=== PATIENT | female | born 1955 | race Caucasian/White ===

== ENCOUNTER 2020-03-05 14:41 | Emergency (ER) | payer OTHER ==
--- OUTSIDE RECORDS SUMMARY | 2020-03-05 14:54 | XMS ---
:1955 Author Organization [facility] Care Team Providers Name Role Phone You Atkinson Unavailable Fader, M Unavailable Fader, M Unavailable Fader, M Unavailable Fader, M Unavailable Fader, M Unavailable Fader, M Unavailable Fader, M Unavailable Fader, M Unavailable Fader, M Unavailable Fader, M Unavailable Fader, M Unavailable Fader, M Unavailable Fader, M Unavailable Re-disclosure Warning The records that you are about to access may contain information from federally- assisted alcohol or drug abuse programs. If such information is present, then the following federally mandated warning applies: This information has been disclosed to you from records protected by federal confidentiality rules (42 CFR part 2). The federal rules prohibit you from making any further disclosure of this information unless further disclosure is expressly permitted by the written consent of the person to whom it pertains or as otherwise permitted by 42 CFR part 2. A general authorization for the release of medical or other information is NOT sufficient for this purpose. The Federal rules restrict any use of the information to criminally investigate or prosecute any alcohol or drug abuse patient.The records that you are about to access may contain highly sensitive health information, the redisclosure of which is protected by Article 27-F of the [facility] Public Health law. If you continue you may haveaccess to information: Regarding HIV / AIDS; Provided by facilities licensed or operated by the [facility] Office of Mental Health; or Provided by the [facility] Office for People With Developmental Disabilities. If such information is present, then the following [facility] mandated warning applies: This information has been disclosed to you from confidential records which are protected by state law. State law prohibits you from making any further disclosure of this information without the specific written consent of the person to whom it pertains, or as otherwise permitted by law. Any unauthorized further disclosure in violation of state law may result in a fine or mcfp sentence or both. A general authorization for the release of medical or other information is NOT sufficient authorization for further disclosure. Encounters Encounter Providers Location Date Indications Data Source(s ) Attender: You 01/18/2020 [facility] ( [facility] 12:00:00 AM ED Medical, ) Telehealth Attender: You Atkinson 01/18/2020 12:00:00 AM E DT [facility] ([facility]) Telehealth Attender: You Atkinson 01/18/2020 12:00:00 AM E DT [facility] ([facility]) Telehealth Medications Medication Brand Start Product Dose Route Administrative Pharmacy [facility] Indications Reaction Description Data Name Date Form Instructions Instructions Source(s) Alprazolam ALPRAZ 01/17/ TABLET 60 complet ALPRA ZOLAM MED[facility] (St 2 MG Oral OLAM:1 2019 ed [facility] Tablet 51721 12:00: Medical, ALPRAZOLAM: 00 AM PC) [id number] EDT Trazodone TRAZOD 01/09/ TABLET 90 complet TRAZOD ONE [facility] (St [facility]chlori [facility]:85 [facility] 6364 12:00: Medical, Oral Tablet 00 AM PC) TRAZODONE:8 EDT 68155 Simvastatin SIMVAS 01/09/ TABLET 90 complet SIMV ASTATIN [facility] (St 20 MG Oral TATIN: 2019 [facility] Tablet [id number] 12:00: Medical, SIMVASTATIN 00 AM PC) :[id number] EDT Insurance Providers Payer name Policy type Policy ID Covered Covered libertarian's Policy P kyra / Coverage libertarian ID relationship to [employer] ormation type [employer] BRADEN [id number] MEDICARE [place] [id number] INSURANCE COMPANY ([employer] [place] MEDICARE [id number] 1 [id number] PART B DOWNSTATE AARP MEDICARE [id number] 1 [id number] COMPLETE STATE [id number] INSURANCE FUND [place] [id number] HEALTHCARE (MEDICARE) [place] [id number] HEALTHCARE (MEDICARE) AARP MEDICARE [id number] 1 [id number] SUPPLEMENT [facility] [id number] 1 [id number] CARE MEDICARE COMPLETE Problems, Conditions, and Diagnoses Code Display Name Description Problem Type Effective Dates Data Source(s) J01.90 Acute sinusitis, ACUTE SINUSITIS, Problem 04/06/2019 [place] DGEN (St unspecified UNSPECIFIED 12:00:00 AM [facility]'s [facility], ) Surgeries/Procedures Procedure Description Date Indications Data Source(s) Documentation of current 01/18/2020 MED [facility] ([facility] medications (procedure) 12:00:00 AM EDT FARNAZ Soria) Documentation of current 01/18/2020 [facility] ([facility] medications (procedure) 12:00:00 AM EDT FARNAZ Soria) Documentation of current 01/18/2020 [facility] ([facility] medications (procedure) 12:00:00 AM EDT FARNAZ Soria) PHYSICIAN TELEPHONE 01/18/2020 [facility] ( [facility] EVALUATION 11-20 MIN 12:00:00 AM EDFARNAZ Stephen) Documentation of current 09/06/2019 [facility] ([facility] medications (procedure) 12:00:00 AM EDT FARNAZ Soria) Documentation of current 09/06/2019 [facility] ([facility] medications (procedure) 12:00:00 AM EDT FARNAZ Soria) PHYSICIAN TELEPHONE 09/06/2019 [facility] ( [facility] EVALUATION 11-20 MIN 12:00:00 AM EDT Lilian middleton PC) Documentation of current 05/31/2019 MED [facility] ([facility] medications (procedure) 12:00:00 AM EST FARNAZ Soria) Documentation of current 05/31/2019 [facility] ([facility] medications (procedure) 12:00:00 AM EST FARNAZ Soria) Documentation of current 05/31/2019 MED [facility] ([facility] medications (procedure) 12:00:00 AM MARNI bell PC) OFFICE OUTPATIENT VISIT 05/31/2019 MEDG EN ([facility] 15 MINUTES 12:00:00 AM RUST Marco PC) Documentation of current 04/06/2019 MED [facility] (Cathi's medications (procedure) 12:00:00 AM MARNI bell PC) Documentation of current 04/06/2019 MED [facility] ([facility]i's medications (procedure) 12:00:00 AM FARNAZ Solorzano) OFFICE OUTPATIENT VISIT 04/06/2019 MED[facility] EN ([facility] 15 MINUTES 12:00:00 AM MARNI Lara PC) Documentation of current 01/26/2019 MED GEN (Cathi's medications (procedure) 12:00:00 AM EDFARNAZ Rosales) Documentation of current 01/26/2019 MED [facility] (Cathi's medications (procedure) 12:00:00 AM LANA bell PC) Documentation of current 01/26/2019 MED [facility] (Cathi's medications (procedure) 12:00:00 AM LANA bell PC) Documentation of current 01/26/2019 MED [facility] (Cathi's medications (procedure) 12:00:00 AM FARNAZ Gottlieb) Documentation of current 01/26/2019 MED GEN (Cathi's medications (procedure) 12:00:00 AM LANA bell PC) Documentation of current 01/26/2019 MED [facility] (Cathi's medications (procedure) 12:00:00 AM EDAlfonso bell PC) Documentation of current 01/26/2019 MED [facility] ([facility]i's medications (procedure) 12:00:00 AM LANA bell PC) OFFICE OUTPATIENT VISIT 01/26/2019 MED[facility] EN ([facility] 15 MINUTES 12:00:00 AM LANA Lara PC) Results ID Date Data Source [id number] 01/15/2020 10:31:00 AM [facility] Name Value Range Interpretation Description Data Sup porting Code Source(s) Document(s ) 2019 Novel [facility] Coronavirus RNA Interpretation Unspecified Specimen Qualitative HANNY Probe Detection This lab was ordered by [facility]-[id number] and reported by [facility]. Procedure Social History Code Duration Value Status Description Data Source(s ) Smoking 01/18/2020 Marital Status completed Marital Status MEDGEN (St 12:00:00 AM EDT Number of [facility] 3 Children 3 PC) Alcohol Use Alcohol Use Rarely Rarely Tobacco Tobacco Status: Status: Former Former smoker smoker (quit jun (quit jun 2016) 2016) Tobacco Tobacco details: details: Cigarettes Daily Cigarettes Daily Smoking: < Smoking: < 1 Pack 1 Pack Smoking 01/18/2020 Former smoker completed Former smoker MED[facility] ( St 12:00:00 AM EDT [facility], ) Vital Signs ID Date Data Source UNK Name Value Range Interpretation Code Description Data Source(s) Body weight 182 lb 182 lb MED[facility] ([facility]) Heart rate 59 /min 59 /min [facility] ([facility]) Respiratory rate 16 /min 16 /min [facility] ( [facility]) Body temperature 98 F 98 F [facility] ( [facility]) Inhaled oxygen 97 % 97 % [facility] ([facility], ) Body mass index 28.7 kg/m2 28.7 kg/m2 MEDGEN (S t (BMI) [Ratio] [facility], ) Diastolic blood 79 mm[Hg] 79 mm[Hg] MED[facility] (S t pressure [facility]) Systolic blood 119 mm[Hg] 119 mm[Hg] MED[facility] ([facility]) Body weight 178 lb 178 lb MED[facility] ([facility]) Body height 66 in 66 in [facility] ([facility]) Heart rate 80 /min 80 /min [facility] ([facility]) Respiratory rate 16 /min 16 /min MED[facility] ( [facility]) Body mass index -1 kg/m2 -1 kg/m2 MEDGEN (S t (BMI) [Ratio] [facility], ) Diastolic blood 78 mm[Hg] 78 mm[Hg] MED[facility] (S t pressure [facility]) Systolic blood 110 mm[Hg] 110 mm[Hg] MED[facility] ([facility]) Heart rate 69 /min 69 /min [facility] ([facility]) Respiratory rate 17 /min 17 /min MED[facility] ( [facility]) Body temperature 98.1 F 98.1 F MED[facility] ( [facility]) Inhaled oxygen 98 % 98 % MED[facility] ([facility], ) Body mass index 29 kg/m2 29 kg/m2 [facility] ([facility] Diastolic blood 65 mm[Hg] 65 mm[Hg] MED[facility] (S t pressure [facility]) Systolic blood 122 mm[Hg] 122 mm[Hg] [facility] ([facility]) Body weight 180 lb 180 lb [facility] ([facility]) [facility] height 66 [facility]
--- NOTE | 2020-03-05 14:57 | TELE ---
HPI Do you have fever,cough or shortness of breath?: No - General Reason For Visit: COVID History Source: Patient Past History - Medical History Allergies/Adverse Reactions: Allergies Allergy/AdvReac Type Severity Reaction Status Date / Time aspirin Allergy Mild Rash Verified 12/16/12 13:49 clarithromycin [From Biaxin] AdvReac Mild thrush, Unverified 06/12/14 10:54 stomach pain Home Medications: Ambulatory Orders Ascorbic Acid [Vitamin C] 1,000 mg PO TID 11/27/12 Lysine 1,000 mg PO DAILY tablet 11/27/12 Ubidecarenone [Coenzyme Q10] 400 mg PO DAILY capsule 11/27/12 Magnesium DAILY 10/22/14 Multivitamin with Minerals [Hair, Skin & Nails] 3 each PO tablet 10/22/14 Aspirin 81 mg PO MWF 10/07/15 Vitamin D3 5,000 unit DAILY 01/06/16 Zinc Gluconate-Zinc Picolinate [Zinc] 30 mg PO DAILY capsule 01/06/16 Ascorbic Acid/Collagen Hydr [Collagen Plus Vit C Capsule] 1,000 mg PO 3 CAPS DAILY capsule 08/19/16 Chlorzoxazone [Lorzone] 750 mg PO Q8H PRN tablet 08/19/16 Gabapentin [Neurontin] 300 mg PO BID #180 capsule 08/19/16 Lactobacillus Acidophilus [Acidophilus] 1 each PO DAILY capsule 08/19/16 Anemia: No Asthma: No Cancer: No Cardiac Disorders: No CVA: No COPD: No CHF: No Dementia: No Diabetes: No GI Disorders: Yes (GERD) Disorders: No HTN: No Hypercholesterolemia: Yes Liver Disease: No Seizures: No Thyroid Disease: No - Surgical History Abdominal Surgery: No Appendectomy: Yes Cardiac Surgery: No Cholecystectomy: Yes Lung Surgery: No Neurologic Surgery: No Orthopedic Surgery: Yes (spinal surgery secondary to trauma) - Psycho-Social/Smoking History Smoking Status: No Smoking History: Current some day smoker Have you smoked in the past 12 months: Yes Number of Cigarettes Smoked Daily: 5 'Breaking Loose' booklet given: 12/12/12 Review of Systems - Review of Systems Constitutional: No: Fever HEENTM: Yes: Throat Pain Respiratory: No: Cough Cardiac (ROS): No: Chest Pain Musculoskeletal: Yes: Muscle Pain - Medical Decision Making 03/05/20 14:55 Patient requesting Covid test with mild flulike symptoms of muscle soreness and sore throat no fever. Positive Covid with close intimate family member. Discharge Diagnosis at time of Disposition: Close exposure to COVID-19 virus - Referrals Follow-up Referral(s): You Atkinson MD [Primary Care Provider] - - Patient Instructions - Discharge Disposition: HOME Condition at time of Disposition: Stable
== END 2020-03-05 14:57 | disposition home or self-care (01) ==
LOC: JVIRT 14:41
DX: Z11.59 Encounter for screening for other viral diseases (principal)
CPT/HCPCS: C9803; G2012-GT; U0003

== ENCOUNTER 2020-03-14 10:11 | Emergency (ER) | payer OTHER | END 2020-03-14 12:31 | disposition home or self-care (01) | LOC: JVIRT 10:11 | DX: Z11.59 Encounter for screening for other viral diseases (principal) | CPT/HCPCS: C9803; Q3014-GT; U0003 ==

== ENCOUNTER 2020-08-23 22:28 | Emergency (ER) | payer OTHER ==
[2020-08-23] MEDS ORDERED: SODIUM CHLORIDE 0.9% 500 ML INFUS.BAG IV ONE (22:44)
[2020-08-23] MEDS ORDERED: ACETAMINOPHEN 1000 MG/100 ML VIAL (NON FORMULARY) IVPB ONE (22:45)
[2020-08-23 22:51] VITALS: BP 122/75; PULSE 102; TEMP 97.6; BMI 30.8
[2020-08-23] MEDS ORDERED: ACETAMINOPHEN INJECTION 100 ML IVPB ONE (22:55)
[2020-08-23 23:11] LABS: EOS % 1.2 % (0-4.5); HEMATOCRIT 40.1 % (32.4-45.2); HEMOGLOBIN 13.3 GM/dl (10.7-15.3); LYMPH % 13.6 % (8-40); MCH 29.5 pg (25.7-33.7); MCHC 33.2 g/dl (32.0-36.0); MEAN CELL VOLUME 88.7 fl (80-96); MEAN PLT VOLUME 8.8 fl (7.5-11.1); MONO % 4.1 % (3.8-10.2); NEUT % 80.1 % (42.8-82.8); PLATELET COUNT 202 K/MM3 (134-434); RBC 4.52 M/mm3 (3.60-5.2); RDW 13.3 % (11.6-15.6); WHITE BLOOD COUNT 9.6 K/mm3 (4.0-10.8)
[2020-08-23 23:24] LABS: INR 1.06 (0.82-1.09); PROTHROMBIN TIME (PATIENT) 11.8 SEC (10.2-13.0)
[2020-08-23 23:41] LABS: ALBUMIN 4.3 g/dl (3.4-5.0); BILIRUBIN,TOTAL 0.4 mg/dl (0.2-1); CALCIUM 8.9 mg/dl (8.5-10); CREATININE 0.9 mg/dl (0.55-1.3); TOT PROT 6.6 g/dl (6.4-8.2)
== END 2020-08-24 00:07 | disposition short-term general hospital (02) ==
LOC: FER 22:28
PROC: 3E033NZ Introduction of Analgesics, Hypnotics, Sedatives into Peripheral Vein, Percutaneous Approach (ICD-10-PCS; principal; 2020-08-23)
DX: S70.12XA Contusion of left thigh, initial encounter (principal); M25.552 Pain in left hip; R20.2 Paresthesia of skin
CPT/HCPCS: 36415; 80053; 85025; 85610; 86850; 86900; 86901; 99291; J0131

== ENCOUNTER 2021-02-10 17:00 | Emergency (ER) | payer OTHER ==
[2021-02-10] MEDS ORDERED: ACETAMINOPHEN 500 MG TABLET (FP) PO ONE (17:20)
[2021-02-10 17:29] VITALS: BP 148/86; PULSE 82; TEMP 99; BMI 26.2
[2021-02-10] MEDS ORDERED: ACETAMINOPHEN 500 MG TABLET (FP) ONE (17:29)
== END 2021-02-10 18:35 | disposition home or self-care (01) ==
LOC: FER 17:00
DX: S52.124A Nondisplaced fracture of head of right radius, initial encounter for closed fracture (principal); W19.XXXA Unspecified fall, initial encounter; Y92.9 Unspecified place or not applicable
CPT/HCPCS: 73060-TC-RT-FY; 73070-TC-RT-FY; 73090-TC-RT-FY; 73110-TC-RT-FY; 99284-25

== ENCOUNTER 2021-11-16 10:21 | Emergency (ER) | payer OTHER ==
[2021-11-16 10:36] VITALS: BMI 27.7
[2021-11-16] MEDS ORDERED: BEBTELOVIMAB (EUA) 175 MG/2 ML VIAL IVPUSH ONE (11:01)
[2021-11-16] MEDS ORDERED: ACETAMINOPHEN 1000 MG/100 ML BAG IVPB ONE (11:02)
[2021-11-16] MEDS ORDERED: SODIUM CHLORIDE 0.9% 500 ML INFUS.BAG IV ONE (11:02)
[2021-11-16] MEDS ORDERED: ACETAMINOPHEN INJECTION 100 ML IVPB ONE (11:12)
[2021-11-16 13:25] VITALS: BP 108/66; PULSE 72; TEMP 98.2
== END 2021-11-16 13:41 | disposition home or self-care (01) ==
LOC: JCOVINFU 10:21 → JER 10:21 → JCOVINFU 13:41
DX: U07.1 COVID-19 (principal)
CPT/HCPCS: 96374; 99284-25; M0222; Q0222

== ENCOUNTER 2022-10-04 09:01 | Day surgery (SDC) | payer OTHER ==
[2022-10-01 12:33] VITALS: BMI 28.4
[2022-10-04 12:33] VITALS: TEMP 97.8
[2022-10-04 12:35] VITALS: BP 110/61; PULSE 70; RESP 20
== END 2022-10-04 12:37 | disposition home or self-care (01) ==
LOC: FASU-ENDO 09:01
PROVIDERS: ATTEND Internal Medicine Gastroenterology
PROC: 0DB68ZX Excision of Stomach, Via Natural or Artificial Opening Endoscopic, Diagnostic (ICD-10-PCS; 2022-10-04)
PROC: 0D748DZ Dilation of Esophagogastric Junction with Intraluminal Device, Via Natural or Artificial Opening Endoscopic (ICD-10-PCS; 2022-10-04)
PROC: 0DB98ZX Excision of Duodenum, Via Natural or Artificial Opening Endoscopic, Diagnostic (ICD-10-PCS; principal; 2022-10-04 11:54)
DX: K29.50 Unspecified chronic gastritis without bleeding (principal); R13.10 Dysphagia, unspecified; R12 Heartburn
CPT/HCPCS: 88305-TC; 88342-TC

== ENCOUNTER 2023-07-13 11:49 | Emergency (ER) | payer OTHER ==
[2023-07-13 12:21] VITALS: RESP 18; TEMP 98.4; BMI 29.0
[2023-07-13] MEDS ORDERED: ONDANSETRON 4 MG/2 ML VIAL ONE (12:46)
[2023-07-13] MEDS ORDERED: ACETAMINOPHEN INJECTION 100 ML IVPB ONE (13:00)
[2023-07-13] MEDS: ONDANSETRON 4 MG/2 ML VIAL IVPUSH ONE (13:00)
[2023-07-13] MEDS: LACTATED RINGERS SOLUTION 1,000 ML/1,000 ML INFUS.BAG IV STA (13:00)
[2023-07-13] MEDS: ACETAMINOPHEN 1000 MG/100 ML BAG IVPB ONE (13:18)
[2023-07-13 13:25] LABS: INR 0.97 (0.83-1.09); PROTHROMBIN TIME (PATIENT) 11.3 SEC (9.7-13.0)
[2023-07-13 13:27] LABS: ACTIVATED PTT 32.9 SECONDS (25.2-36.5)
[2023-07-13 13:33] LABS: HEMATOCRIT 45.2 % (32.4-45.2); HEMOGLOBIN 14.9 G/dL (10.7-15.3); MCH 29.3 pg (25.7-33.7); MEAN CELL VOLUME 88.7 fl (80-96); MEAN PLT VOLUME 9.3 fl (7.5-11.1); PLATELET COUNT 177.3 10^3/uL (134-434); RDW 14.6 % (11.6-15.6); WHITE BLOOD COUNT 7.1 10^3/uL (4.0-10.8)
[2023-07-13 13:35] LABS: ALBUMIN 5.1 g/dl (3.4-5.0); CALCIUM 10.5 mg/dl (8.5-10.1); CREATININE 0.9 mg/dl (0.6-1.3); POTASSIUM 3.8 mmol/L (3.5-5.1); TOT PROT 7.4 g/dl (6.4-8.2)
[2023-07-13 13:46] LABS: PLATELET ESTIMATE ADEQUATE
[2023-07-13 16:25] VITALS: BP 150/100; PULSE 73
== END 2023-07-13 17:05 | disposition home or self-care (01) ==
LOC: FER 11:49
PROC: 3E033NZ Introduction of Analgesics, Hypnotics, Sedatives into Peripheral Vein, Percutaneous Approach (ICD-10-PCS; principal; 2023-07-13)
PROC: 3E033GC Introduction of Other Therapeutic Substance into Peripheral Vein, Percutaneous Approach (ICD-10-PCS; 2023-07-13)
PROC: 3E0337Z Introduction of Electrolytic and Water Balance Substance into Peripheral Vein, Percutaneous Approach (ICD-10-PCS; 2023-07-13)
DX: R55 Syncope and collapse (principal); R42 Dizziness and giddiness; R61 Generalized hyperhidrosis; R51.9 Headache, unspecified; Z20.822 Contact with and (suspected) exposure to COVID-19
CPT/HCPCS: 0241U-QW; 36415; 70450-TC; 71045-TC-FY; 80053; 81003; 84484; 85025; 85610; 85730; 87086; 93005; 99285-25; J0131